=== PATIENT | female | born 1990 | race American Indian/Alaskan Native ===

== ENCOUNTER 2019-04-12 09:40 | Outpatient (CLI) | payer MEDICAID ==
[2019-04-12 10:33] VITALS: BP 113/69
--- NOTE | 2019-04-12 12:19 | Ultrasound Report ---
ULTRASOUND BIOPHYSICAL PROFILE ULTRASOUND OB LIMITED INDICATION: Evaluate amniotic fluid in cervical length TECHNIQUE: Transabdominal ultrasound imaging. COMPARISON: None FINDINGS: breathing movement = 0 Gross body movement = 2 tone = 2 Qualitative amniotic fluid volume = 2 Total biophysical score = 6/8 Amniotic fluid index is 15.1 cm. Presentation is cephalic. heart rate is 127 beats per minute. The cervix measures 2.6 cm in length. IMPRESSION: Normal amniotic fluid. The cervix measures 2.6 cm. Signer Name: Italo Urbina Jr, MD Signed: 04/12/2019 12:14 PM Workstation Name: [id number]
[2019-04-12] MEDS ORDERED: CELESTONE SOLUSPAN IM ONE ×2 (13:02→13:06)
== END 2019-04-12 13:39 | disposition home or self-care (01) ==
LOC: TRG 09:40
PROVIDERS: ATTEND Obstetrics & Gynecology
DX: O42.912 Preterm premature rupture of membranes, unspecified as to length of time between rupture and onset of labor, second trimester (principal); O99.512 Diseases of the respiratory system complicating pregnancy, second trimester; J45.909 Unspecified asthma, uncomplicated; Z3A.27 27 weeks gestation of pregnancy
CPT/HCPCS: 36415; 59020; 76815; 76819; 82731; 96372; J0702

== ENCOUNTER 2019-04-13 13:37 | Outpatient (CLI) | payer MEDICAID ==
[2019-04-13] MEDS ORDERED: CELESTONE SOLUSPAN IM ONE (13:43)
== END 2019-04-13 14:09 | disposition home or self-care (01) ==
LOC: TRG 13:37
PROVIDERS: ATTEND Obstetrics & Gynecology
DX: Z29.8 Encounter for other specified prophylactic measures (principal); Z3A.27 27 weeks gestation of pregnancy
CPT/HCPCS: 96372; J0702

== ENCOUNTER 2019-04-16 01:59 | Outpatient (CLI) | payer MEDICAID ==
[2019-04-16 03:09] VITALS: BP 120/73
--- NOTE | 2019-04-16 04:30 | Ultrasound Report ---
Limited obstetrical ultrasound INDICATION: , amniotic fluid assessment COMPARISON: 04/12/2019 Evaluation was made only for amniotic fluid index measurement. Intrauterine is seen in a cephalic position. cardiac activity was documented at 177 b pm. SHANNON was calculated at 9.5 cm which is within normal limits though at the lower end of the normal rang e. However, this is less than the 15.1 cm on the recent study. I do not have a sufficient images avai lable for a qualitative assessment for comparison. IMPRESSION: Decrease in measured amniotic fluid index compared to recent study though still within no rmal range. Signer Name: Jimmy Bonds MD Signed: 04/16/2019 4:25 AM Workstation Name: [id number]
== END 2019-04-16 05:35 | disposition home or self-care (01) ==
LOC: TRG 01:59
PROVIDERS: ATTEND Obstetrics & Gynecology
DX: O47.02 False labor before 37 completed weeks of gestation, second trimester (principal); Z3A.27 27 weeks gestation of pregnancy
CPT/HCPCS: 76815